=== PATIENT | male | born 2000 | race African-American/Black ===

== ENCOUNTER 2018-09-01 21:41 | Emergency (ER) | payer MEDICAID, OTHER ==
[2018-09-01] MEDS ORDERED: Bacitracin/Neomycin/Polymyxin B Oint 0.9 GM U/D Packet TOP ONE (22:53)
--- NOTE | 2018-09-01 23:18 | EDM.PDOC ---
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 Bleeding under control. No loss of function. No other complaints. Tetanus is up to date. Right Hand Pain Score (Numeric/FACES): 6 - Related Data Allergies Allergy/AdvReac Type Severity Reaction Status Date / Time No Known Allergies Allergy Verified 09/01/18 22:26 Home Meds: Home Meds Ibuprofen 600 mg PO Q6HR PRN 09/01/18 [History] Past Medical History - Past Health History Medical/Surgical History: Denies Medical/Surgical History - Past Surgical History HEENT Surgical History: Reports: Oral Surgery Social & Family History - Tobacco Use Smoking Status *Q: Never Smoker Second Hand Smoke Exposure: No - Caffeine Use Caffeine Use: Reports: None - Recreational Drug Use Recreational Drug Use: No Review of Systems - Review of Systems Review Of Systems: ROS reveals no pertinent complaints other than HPI. ED EXAM, GENERAL - Physical Exam Exam: See Below Exam Limited By: No Limitations General Appearance: Alert, WD/WN, No Apparent Distress Eye Exam: Bilateral Eye: EOMI, PERRL Head: Atraumatic, Normocephalic Extremities: Normal Capillary Refill, Other (laceration noted middle of dorsal right hand. 2cm. Tendon function of hand and fingers intact. No bruising/ swelling. ) Neurological: Alert, Oriented, Normal Cognition, Normal Gait, No Motor/Sensory Deficits Psychiatric: Normal Affect, Normal Mood Skin Exam: Warm, Dry ED TRAUMA EXTREMITY PROCEDURES - Laceration/Wound Repair Right Dorsal Hand Lac/Wound Length In cm: 2 Appearance: Superficial, Subcutaneous, Linear, Clean Distal NVT: Neuro & Vascular Intact, No Tendon Injury Anesthetic Type: Local Local Anesthesia - Lidocaine (Xylocaine): 1% Plain Local Anesthetic Volume: 2cc Skin Prep: Saline Exploration/Debridement/Repair: Wound Explored, In a Bloodless Field, Explored to Base, No Foreign Material Found Suture Size: 3-0 # of Sutures: 4 Suture Type: Prolene, Interrupted Drain Placement: No Sterile Dressing Applied: Nurse Tetanus Status Addressed: Yes Complications: No Course - Vital Signs Last Recorded V/S: Last Vital Signs Temp 36.6 C 09/01/18 21:42 Pulse 70 09/01/18 21:42 Resp 18 09/01/18 21:42 BP 116/72 09/01/18 21:42 Pulse Ox 100 09/01/18 21:42 - Orders/Labs/Meds Meds: Medications Discontinued Medications Generic Name Dose Route Start Last Admin Trade Name Jennyfer PRN Reason Stop Dose Admin Lidocaine HCl 5 ml 09/01/18 22:53 Xylocaine-Mpf 1% INJECT 09/01/18 22:54 ONETIME ONE Neomycin/Polymyxin/Bacitracin 1 each 09/01/18 22:53 Triple Antibiotic Oint TOP 09/01/18 22:54 ONETIME ONE - Re-Assessments/Exams Free Text/Narrative Re-Assessment/Exam: 09/01/18 23:17 Laceration repaired. Wound care and precautions reviewed. Sutures out in one week. Departure - Departure Time of Disposition: 23:17 Disposition: Home, Self-Care 01 Condition: Good Clinical Impression: Hand laceration Qualifiers: Encounter type: initial encounter Foreign body presence: without foreign body Laterality: right Qualified Code(s): S61.411A - Laceration without foreign body of right hand, initial encounter - Discharge Information *PRESCRIPTION DRUG MONITORING PROGRAM REVIEWED*: Not Applicable *COPY OF PRESCRIPTION DRUG MONITORING REPORT IN PATIENT ISHMAEL: Not Applicable Instructions: Laceration Care, Adult, [id number] Referrals: PCP,None [Primary Care Provider] - Forms: ED Department Discharge Additional Instructions: Keep wound clean and dry while healing. Have sutures removed in 7 days. Follow up earlier if you have problems or signs of infection.
== END 2018-09-01 23:30 | disposition home or self-care (01) ==
LOC: LL.ED 21:41
DX: S61.411A Laceration without foreign body of right hand, initial encounter (principal); W31.89XA Contact with other specified machinery, initial encounter
CPT/HCPCS: 12001; 12041; 99282-25; J2001